=== PATIENT | female | born 1935 | race Caucasian/White ===

== ENCOUNTER 2017-04-08 13:48 | Inpatient (IN) | payer OTHER ==
[~2017-04-08] VITALS: Ht 172.7 cm; Wt 93.5 kg
[2017-04-08] VITALS (11 sets, daily range): BP systolic 115–144; BP diastolic 57–92
[~2017-04-08 13:48] MED LIST: ASPIR-TRIN325 M1 PO; CYCLOBENZAPRINE5 MG PO; Chromagen, Feogen, M PO; METABO-EPHEDRA1 EACH PO; NEURONTIN300 MG PO; PRESERVISION A1 EACH PO; PRILOSEC20 MG PO; REGLAN10 MG PO; SERTRALINE HCL100 MG PO; TRAZODONE HCL50 MG PO; TYLENOL ARTHRI650 MG PO; VICODIN,LORT1 TABLET PO; ZESTRIL,PRINIVI20 MG PO; [UNRECOGNIZED DRUG - OTHER] PO
[2017-04-08 14:47] LABS: EOSINOPHIL (%) 1.5 % (0-5); EOSINOPHIL COUNT 0.1 K/uL (0-0.3); HEMATOCRIT 17.1 % (36.0-46.0); IMMATURE GRANULOCYTE (%) 1.6 % (0.0-0.7); IMMATURE GRANULOCYTE COUNT 0.1 K/uL; INSTRUMENT ABS NEUTROPHIL CT 4.3 K/uL; LYMPHOCYTE COUNT 1.6 K/uL (1.0-2.8); MCH 31.2 PG (29.0-34.0); MCHC 31.6 G/DL (30.0-36.0); MCV 98.8 FL (83-99); MEAN PLAT.VOLUME 10.8 uM^3 (9.5-12.4); MONOCYTE (%) 9.6 % (3-12); MONOCYTE COUNT 0.7 K/uL (0-0.8); NEUTROPHIL (%) 63.7 % (45-76); NEUTROPHIL COUNT 4.3 K/uL (1.8-6.4); NRBC (%) 0.4 /100 WBC (0-0); PLATELET COUNT 135 K/uL (156-360); RBC DIS.WIDTH-CV 18.8 % (11.8-14.6); RBC DIS.WIDTH-SD 63.1 % (39-53); RED BLOOD COUNT 1.73 M/uL (3.80-5.20); WHITE BLOOD COUNT 6.8 K/uL (4.1-10.2)
[2017-04-08 14:49] LABS: INTER. NORMALIZED RATIO 3.5; PROTHROMBIN TIME 40.8 SEC (10.2-12.9)
[2017-04-08 14:50] LABS: CHLORIDE 116 mEq/L (99-109); POTASSIUM 4.2 mEq/L (3.7-5.4); SODIUM 143 mEq/L (136-147)
[2017-04-08 14:52] LABS: GLUCOSE 149 mg/dL (70-99)
[2017-04-08 14:53] LABS: ANION GAP 8 MEQ/L (2-14)
[2017-04-08 14:54] LABS: TOTAL BILIRUBIN 0.4 mg/dL (0.0-1.0)
[2017-04-08 14:55] LABS: ALKALINE PHOSPHATASE 77 IU/L (3-129)
[2017-04-08 14:56] LABS: GFR ESTIMATE (CALCULATED) 42 mL/min/
[2017-04-08 14:57] LABS: UREA NITROGEN (BUN) 25 mg/dL (9-23)
[2017-04-08 15:04] LABS: TROP-I INTERPRETATION NEGATIVE; TROPONIN-I 0.02 ng/mL (0.0-0.30)
[2017-04-08] MEDS ORDERED: LISINOPRIL5 MG PO (19:14)
[2017-04-08] MEDS ORDERED: LOPRESSOR50 MG PO (19:15)
[2017-04-08] MEDS ORDERED: WARFARIN SODIUM5 MG PO (19:16)
[2017-04-08] MEDS ORDERED: COUMADIN5 MG PO (19:17)
[2017-04-08] MEDS ORDERED: IMDUR30 MG PO (19:17)
[2017-04-08] MEDS ORDERED: AMIODARONE HCL100 MG PO (19:18)
[2017-04-08] MEDS ORDERED: POTASSIUM CHLO20 ME2 PO (19:20)
[2017-04-08] MEDS ORDERED: SUCRALFATE1 GM PO (19:20)
[2017-04-08] MEDS ORDERED: PRAVASTATIN SOD20 MG PO (19:20)
[2017-04-08] MEDS ORDERED: AMLODIPINE BESYL5 MG PO (19:21)
[2017-04-08] MEDS ORDERED: FUROSEMIDE20 MG PO (19:22)
[2017-04-08] MEDS ORDERED: PANTOPRAZOLE SO40 MG PO (19:23)
[2017-04-08] MEDS ORDERED: LO-DOSE ASPIRIN81 M2 PO (19:24)
[2017-04-08] MEDS ORDERED: TYLENOL ARTHRI650 MG PO (19:27)
[2017-04-08 21:24] LABS: HEMATOCRIT 23.1 % (36.0-46.0); MCH 30.4 PG (29.0-34.0); MCHC 31.2 G/DL (30.0-36.0); MCV 97.5 FL (83-99); MEAN PLAT.VOLUME 10.2 uM^3 (9.5-12.4); NRBC (%) 0.4 /100 WBC (0-0); PLATELET COUNT 105 K/uL (156-360); RBC DIS.WIDTH-CV 18.3 % (11.8-14.6); RBC DIS.WIDTH-SD 61.7 % (39-53); WHITE BLOOD COUNT 5.5 K/uL (4.1-10.2)
[2017-04-08 21:34] LABS: RED BLOOD COUNT 2.37 M/uL (3.80-5.20)
[2017-04-09] VITALS (10 sets, daily range): BP systolic 101–143; BP diastolic 55–67
[2017-04-09 00:59] LABS: TROP-I INTERPRETATION NEGATIVE; TROPONIN-I 0.02 ng/mL (0.0-0.30)
[2017-04-09 06:14] LABS: HEMATOCRIT 27.2 % (36.0-46.0); MCV 96.5 FL (83-99)
[2017-04-09 06:39] LABS: TROP-I INTERPRETATION NEGATIVE; TROPONIN-I 0.02 ng/mL (0.0-0.30)
[2017-04-09 08:42] LABS: ANION GAP 7 MEQ/L (2-14); CHLORIDE 116 MEQ/L (99-109); POTASSIUM 4.5 MEQ/L (3.7-5.4); SAMPLE HEMOLYSIS CHECK 0; SAMPLE ICTERIC CHECK 0; SAMPLE LIPEMIA CHECK 0; SODIUM 145 MEQ/L (136-147); TOTAL BILIRUBIN 0.7 MG/DL (0.0-1.0)
[2017-04-09 08:47] LABS: ALKALINE PHOSPHATASE 58 IU/L (3-129); GFR ESTIMATE (CALCULATED) 57 mL/min/; GLUCOSE 129 mg/dL (70-99); UREA NITROGEN (BUN) 18 mg/dL (9-23)
[2017-04-09 10:58] LABS: INTER. NORMALIZED RATIO 1.5
[2017-04-09 19:40] LABS: HEMATOCRIT 26.6 % (36.0-46.0); MCV 95.7 FL (83-99)
[2017-04-10] VITALS: BP 114/56
[2017-04-10 04:00] VITALS: BP 145/65
[2017-04-10 06:26] LABS: EOSINOPHIL (%) 1.8 % (0-5); EOSINOPHIL COUNT 0.1 K/uL (0-0.3); HEMATOCRIT 28.1 % (36.0-46.0); IMMATURE GRANULOCYTE (%) 1.8 % (0.0-0.7); IMMATURE GRANULOCYTE COUNT 0.1 K/uL; INSTRUMENT ABS NEUTROPHIL CT 2.2 K/uL; LYMPHOCYTE COUNT 1.1 K/uL (1.0-2.8); MCH 30.6 PG (29.0-34.0); MCHC 31.7 G/DL (30.0-36.0); MCV 96.6 FL (83-99); MEAN PLAT.VOLUME 10.6 uM^3 (9.5-12.4); MONOCYTE (%) 10.4 % (3-12); MONOCYTE COUNT 0.4 K/uL (0-0.8); NEUTROPHIL COUNT 2.2 K/uL (1.8-6.4); PLATELET COUNT 107 K/uL (156-360); RBC DIS.WIDTH-CV 18.3 % (11.8-14.6); RBC DIS.WIDTH-SD 63.5 % (39-53); WHITE BLOOD COUNT 3.8 K/uL (4.1-10.2)
[2017-04-10 06:30] LABS: RED BLOOD COUNT 2.91 M/uL (3.80-5.20)
[2017-04-10 07:31] VITALS: BP 173/87
[2017-04-10 11:27] VITALS: BP 120/58
[2017-04-10 16:00] VITALS: BP 104/57
[2017-04-10 19:42] LABS: HEMATOCRIT 30.2 % (36.0-46.0)
[2017-04-10 20:48] VITALS: BP 178/79
[2017-04-11] VITALS: BP 149/67
[2017-04-11 03:43] VITALS: BP 142/64
[2017-04-11 06:31] LABS: EOSINOPHIL (%) 2.1 % (0-5); EOSINOPHIL COUNT 0.1 K/uL (0-0.3); HEMATOCRIT 27.7 % (36.0-46.0); IMMATURE GRANULOCYTE (%) 2.1 % (0.0-0.7); IMMATURE GRANULOCYTE COUNT 0.1 K/uL; INSTRUMENT ABS NEUTROPHIL CT 1.8 K/uL; MCH 31.5 PG (29.0-34.0); MCHC 33.2 G/DL (30.0-36.0); MCV 94.9 FL (83-99); MEAN PLAT.VOLUME 10.3 uM^3 (9.5-12.4); MONOCYTE (%) 11.4 % (3-12); MONOCYTE COUNT 0.4 K/uL (0-0.8); NEUTROPHIL COUNT 1.8 K/uL (1.8-6.4); PLATELET COUNT 112 K/uL (156-360); RBC DIS.WIDTH-CV 17.7 % (11.8-14.6); RED BLOOD COUNT 2.92 M/uL (3.80-5.20); WHITE BLOOD COUNT 3.3 K/uL (4.1-10.2)
[2017-04-11 06:43] LABS: INTER. NORMALIZED RATIO 1.3; PROTHROMBIN TIME 14.2 SEC (10.2-12.9)
[2017-04-11 08:13] VITALS: BP 149/69
[2017-04-11 11:47] VITALS: BP 132/66
[2017-04-11 20:32] VITALS: BP 153/70
[2017-04-11 23:08] VITALS: BP 162/74
[2017-04-12] VITALS (7 sets, daily range): BP systolic 123–149; BP diastolic 62–77
[2017-04-12 07:00] LABS: HEMATOCRIT 27.7 % (36.0-46.0); MCV 94.9 FL (83-99)
[2017-04-12 07:05] LABS: INTER. NORMALIZED RATIO 1.2; PROTHROMBIN TIME 13.3 SEC (10.2-12.9)
[2017-04-12 10:57] LABS: IMM.RETIC FRACTION 23.9 % (3-19); RETIC HGB EQUIVALENT 28.8 (28-36); RETICULOCYTE COUNT 4.9 % (0.5-1.8)
[2017-04-12 11:27] LABS: ALKALINE PHOSPHATASE 54 IU/L (3-129); ANION GAP 7 MEQ/L (2-14); CHLORIDE 108 MEQ/L (99-109); FERRITIN 38 NG/ML (10-291); GFR ESTIMATE (CALCULATED) 51 mL/min/; GLUCOSE 125 mg/dL (70-99); IRON 43 MCG/DL (35-150); POTASSIUM 4.2 MEQ/L (3.7-5.4); SAMPLE HEMOLYSIS CHECK 0; SAMPLE ICTERIC CHECK 0; SAMPLE LIPEMIA CHECK 0; SODIUM 142 MEQ/L (136-147); UREA NITROGEN (BUN) 13 mg/dL (9-23)
[2017-04-12 11:29] LABS: TOTAL BILIRUBIN 0.5 MG/DL (0.0-1.0)
[2017-04-13 06:29] LABS: EOSINOPHIL COUNT 0.1 K/uL (0-0.3); HEMATOCRIT 29.2 % (36.0-46.0); IMMATURE GRANULOCYTE (%) 0.6 % (0.0-0.7); INSTRUMENT ABS NEUTROPHIL CT 1.8 K/uL; LYMPHOCYTE COUNT 1.3 K/uL (1.0-2.8); MCH 29.7 PG (29.0-34.0); MCHC 31.5 G/DL (30.0-36.0); MCV 94.2 FL (83-99); MEAN PLAT.VOLUME 10.5 uM^3 (9.5-12.4); MONOCYTE (%) 10.3 % (3-12); MONOCYTE COUNT 0.4 K/uL (0-0.8); NEUTROPHIL (%) 50.3 % (45-76); NEUTROPHIL COUNT 1.8 K/uL (1.8-6.4); PLATELET COUNT 114 K/uL (156-360); RBC DIS.WIDTH-CV 16.7 % (11.8-14.6); RBC DIS.WIDTH-SD 57.1 % (39-53); WHITE BLOOD COUNT 3.5 K/uL (4.1-10.2)
[2017-04-13 06:51] LABS: ANION GAP 7 MEQ/L (2-14); CHLORIDE 108 MEQ/L (99-109); GFR ESTIMATE (CALCULATED) 57 mL/min/; GLUCOSE 128 mg/dL (70-99); INTER. NORMALIZED RATIO 1.2; POTASSIUM 4.3 MEQ/L (3.7-5.4); PROTHROMBIN TIME 13.7 SEC (10.2-12.9); SAMPLE HEMOLYSIS CHECK 0; SAMPLE ICTERIC CHECK 0; SAMPLE LIPEMIA CHECK 0; SODIUM 142 MEQ/L (136-147); UREA NITROGEN (BUN) 17 mg/dL (9-23)
[2017-04-13 07:37] VITALS: BP 133/66
== END 2017-04-13 15:44 | disposition home or self-care (01) | DRG 809 ==
LOC: EME 13:48 → 5EAST 19:14 → EDOF 19:14 → ENRESERV 19:16 → 5EAST 21:53 → ENPENDDIS 04-13 → 5EAST 04-13 15:44
PROVIDERS: Emergency Medicine; Hospitalist; Internal Medicine Gastroenterology; Student in an Organized Health Care Education/Training Program
PROC: 30233N1 Transfusion of Nonautologous Red Blood Cells into Peripheral Vein, Percutaneous Approach (ICD-10-PCS; principal; 2017-04-08)
PROC: 0DJ08ZZ Inspection of Upper Intestinal Tract, Via Natural or Artificial Opening Endoscopic (ICD-10-PCS; 2017-04-09)
PROC: 0DBK8ZZ Excision of Ascending Colon, Via Natural or Artificial Opening Endoscopic (ICD-10-PCS; 2017-04-11)
DX: D61.818 Other pancytopenia (principal); K92.1 Melena; I48.91 Unspecified atrial fibrillation; D12.2 Benign neoplasm of ascending colon; K64.8 Other hemorrhoids; R79.1 Abnormal coagulation profile; D46.9 Myelodysplastic syndrome, unspecified; K21.9 Gastro-esophageal reflux disease without esophagitis; K44.9 Diaphragmatic hernia without obstruction or gangrene; E78.5 Hyperlipidemia, unspecified; I25.10 Atherosclerotic heart disease of native coronary artery without angina pectoris; I10 Essential (primary) hypertension; F32.9 Major depressive disorder, single episode, unspecified; E66.9 Obesity, unspecified; Z68.31 Body mass index [BMI] 31.0-31.9, adult; I25.2 Old myocardial infarction; Z79.01 Long term (current) use of anticoagulants; Z79.82 Long term (current) use of aspirin; Z95.5 Presence of coronary angioplasty implant and graft; Z87.01 Personal history of pneumonia (recurrent); Z87.11 Personal history of peptic ulcer disease; Z23 Encounter for immunization
CPT/HCPCS: 71020; 74176; 80048; 80053; 82607; 82728; 82746; 83540; 83880; 84466; 84484; 85014; 85018; 85025; 85025 91; 85027; 85045; 85610; 86850; 86900; 86901; 86920; 88305; 90686; 93005; 94640; 94799; 99281; 99285; C9113; J1940; J2250; J3010; J3430; J7050; J7120; P9016